=== PATIENT | female | born 1990 | race Caucasian/White ===

== ENCOUNTER 2018-02-21 15:10 | Emergency (ER) | payer BC, OTHER ==
[2018-02-21 15:55] LABS: ADD MAN DIFF? NO
[2018-02-21] MEDS: SOD CHLORIDE 0.9% 1,000 ML IV (15:55)
[2018-02-21 16:01] LABS: WHITE BLOOD COUNT 9.2 10^3/ul (4.8-10.8)
[2018-02-21 16:01] LABS: BASOPHILS % 0.4 % (0.0-2.0); EOSINOPHILS # 0.4 10^3/ul (0.0-0.5); EOSINOPHILS % 4.8 % (0.0-7.0); HEMATOCRIT 41.6 % (37.0-47.0); HEMOGLOBIN 13.4 g/dl (12.0-16.0); LYMPHOCYTES % 32.5 % (15.0-51.0); MEAN CORPUSCULAR HEMOGLOBIN 26.7 pg (29.0-33.0); MEAN CORPUSCULAR HGB CONC 32.2 g/dl (32.0-37.0); MEAN CORPUSCULAR VOLUME 82.9 fl (82.0-101.0); MEAN PLATELET VOLUME 9.6 fl (7.4-10.4); MONOCYTE # 0.7 10^3/ul (0.3-0.9); MONOCYTES % 7.3 % (0.0-11.0); NEUTROPHILS % 54.7 % (39.0-77.0); PLATELET COUNT 282 10^3/UL (140-415); RED BLOOD COUNT 5.02 10^6/ul (4.20-5.40); RED CELL DISTRIBUTION WIDTH 14.4 % (11.5-14.5)
[2018-02-21 16:20] LABS: INR 0.91; PROTIME 12.3 Sec (11.9-14.9)
[2018-02-21 16:21] LABS: PARTIAL THROMBOPLASTIN TIME 25.6 Sec (25.0-35.0)
[2018-02-21 16:41] LABS: B-TYPE NATRIURETIC PEPTIDE 46 PG/ML (0-125); TROPONIN-I < 0.012 ng/ml (0.000-0.120)
[2018-02-21 16:46] LABS: ANION GAP 10 (8-16); BLOOD UREA NITROGEN 17 mg/dl (7-20); CARBON DIOXIDE 26 mmol/L (21-31); CHLORIDE 108 mmol/L (97-110); CREATININE 1.19 mg/dl (0.44-1.00); GLUCOSE 88 mg/dl (70-220); POTASSIUM 4.2 mmol/L (3.5-5.1); SODIUM 140 mmol/L (135-144)
[2018-02-21] MEDS: SOD CHLORIDE 0.9% 100 ML (17:12)
[2018-02-21] MEDS: IODIXANOL LOCM 100 ML BTL (17:13)
== END 2018-02-21 21:08 | disposition home or self-care (01) ==
LOC: E/R 15:10
DX: R07.9 Chest pain, unspecified (principal); I10 Essential (primary) hypertension
CPT/HCPCS: 36415; 71046; 71275; 78582; 80048; 81025; 83880; 84484; 85025; 85610; 85730; 93005; 99285-25

== ENCOUNTER 2018-08-15 19:57 | Emergency (ER) | payer BC ==
[2018-08-15] MEDS: METHYLPREDNISOLONE 125 MG INJ IM (22:37)
[2018-08-15] MEDS: PROMETHAZINE/DM (CUP) PO (22:38)
[2018-08-15] MEDS: IBUPROFEN 600 MG TAB PO (22:39)
[2018-08-15] MEDS: ACETAMINOPHEN 500 MG TAB PO (22:39)
[2018-08-15] MEDS: ALBUTEROL 0.083% (NEB) 2.5 MG/3 ML AMP NEB (22:44)
[2018-08-15] MEDS: IPRATROPIUM (NEB) 0.5 MG/2.5 ML AMP NEB (22:44)
[2018-08-15 22:50] LABS: ADD UMIC YES; UR ASCORBIC ACID NEGATIVE (NEGATIVE); UR BACTERIA FEW /HPF (NONE SEEN); UR BILIRUBIN (Dip) NEGATIVE (NEGATIVE); UR BLOOD (Dip) 1+ mg/dL (NEGATIVE); UR CLARITY SLIGHTLY CLOUDY (CLEAR); UR COLOR YELLOW (YELLOW); UR GLUCOSE (Dip) NEGATIVE (NEGATIVE); UR KETONES (Dip) NEGATIVE (NEGATIVE); UR LEUKOCYTE ESTERASE (Dip) 1+ Leu/ul (NEGATIVE); UR NITRITE (Dip) NEGATIVE (NEGATIVE); UR RBC 7 /HPF (0-5); UR SPECIFIC GRAVITY (Dip) 1.014 (1.003-1.030); UR SQUAMOUS EPITHELIAL CELL MODERATE /HPF (FEW); UR TOTAL PROTEIN (Dip) 2+ mg/dl (NEGATIVE); UR UROBILINOGEN (Dip) NEGATIVE (NEGATIVE); UR WBC 23 /HPF (0-5)
[2018-08-15] MEDS: CEFTRIAXONE 1 GM INJ IM (23:22)
[2018-08-15] MEDS ORDERED: CEFTRIAXONE 1 GM/50 ML (PMX) 50 ML IVPB (23:30)
== END 2018-08-15 23:46 | disposition home or self-care (01) ==
LOC: FTE 19:57
DX: N39.0 Urinary tract infection, site not specified (principal); J20.9 Acute bronchitis, unspecified; I10 Essential (primary) hypertension; J45.901 Unspecified asthma with (acute) exacerbation; R05 Cough
CPT/HCPCS: 71045; 81001; 81025; 87086; 87400; 94664; 96372; 99284-25